=== PATIENT | female | born 2005 | race Caucasian/White ===

== ENCOUNTER 2024-11-08 13:00 | Outpatient (CLI) | payer OTHER, SELFPAY ==
--- NOTE | 2024-11-08 13:00 | MR_ITS ---
EXAM: MRI of the LEFT KNEE, without contrast CLINICAL INFORMATION: Female, 19 years old, with left knee pain. INDICATION: Evaluate for ACL tear. PRIOR SURGERY: None reported. PLAIN FILMS: None available. COMPARISONS: No prior MRIs available. TECHNICAL INFORMATION: Using a 1.5T MR scanner and a localizing surface coil: sagittals: PD, PDFS coronals: PD, T2FS axials: PD, PDFS SEDATION: None CONTRAST: None FINDINGS: Knee joint: Effusion: Moderate left knee effusion. Popliteal cyst: None. Loose bodies: None. Subcutaneous and extra-articular soft tissues: Unremarkable. Ligaments: ACL: Full thickness disruption of the ACL (sagittal PD series 5 images 15-17). PCL: Intact PCL, without acute or chronic injury. MCL: Intact MCL superficial and deep layers, without injury. LCL: Intact LCL, without injury. Posterolateral corner: No posterolateral corner soft tissue injury. Popliteus, biceps femoris, iliotibial band, popliteofibular ligament and lateral gastrocnemius are intact. Posteromedial corner: No posteromedial corner soft tissue injury. Semimembranosus, pes anserine tendons and posterior oblique ligament are without injury, tendinopathy or bursitis. Extensor mechanism: Patellar tendon: Intact, without tendinopathy. Quadriceps tendon: Intact, without tendinopathy. Retinacula: Medial and lateral retinacula are intact. Fat pads: Unremarkable infrapatellar Hoffa's, quadriceps and prefemoral fat pads. Medial compartment: Medial meniscus: Abnormal signal and irregularity is present throughout the posterior meniscocapsular junction, without tear (sagittal PDFS series 6 images 711). No articular surface or root tear. No extrusion or parameniscal cyst. Medial femoral condyle: No chondromalacia or osteochondral abnormality. Medial tibial plateau: No chondromalacia or osteochondral abnormality. Lateral compartment: Lateral meniscus: Partial thickness radial tearing at the posterior horn/root junction over a length of 8 mm and involving approximately 50% of the meniscal thickness (sagittal PDFS series 6 images 20-22). No meniscal extrusion apparent meniscal cyst. Lateral femoral condyle: No chondromalacia or osteochondral abnormality. Lateral tibial plateau: No chondromalacia or osteochondral abnormality. Patellofemoral joint: Patella: No chondromalacia or osteochondral abnormality. Trochlea: No chondromalacia or osteochondral abnormality. Proximal tibiofibular joint: Unremarkable, without evidence of ligament sprain injury, joint effusion or adjacent marrow edema. Bones: Mild-moderate edema-like signal is present in the anterior aspect of the lateral femoral condyle and posterior aspects of the medial greater than lateral tibial plateau. IMPRESSION: 1. Full-thickness disruption of the ACL with typical pattern shift osseous contusions. 2. Partial thickness radial tearing at the posterior horn/root junction of the lateral meniscus over a length of 8 mm and involving approximately 50% of the meniscal thickness. 3. Posterior meniscocapsular junction sprain of the medial meniscus, without discrete medial meniscal tear. 4. Moderate knee joint effusion. No popliteal (Jama's) cyst. 5. No PCL, MCL, or LCL sprain/tear. BC Electronically signed on 11/11/2024 3:05:00 PM by Abimael Gaytan M.D.
== END 2024-11-08 13:01 | disposition home or self-care (01) ==
PROVIDERS: Visit Provider Orthopaedic Surgery
DX: M25.562 Pain in left knee (principal); S80.02XA Contusion of left knee, initial encounter; S83.282A Other tear of lateral meniscus, current injury, left knee, initial encounter; M25.462 Effusion, left knee; S89.92XA Unspecified injury of left lower leg, initial encounter
CPT/HCPCS: 73721